=== PATIENT | male | born 1960 | race Caucasian/White ===

== ENCOUNTER → 2023-05-14 | Day surgery (SDC) | payer BC ==
[~2023-05-14] MED LIST: Glucagon,Human Recombinant 1 MG Vial IV ONE; Ketamine 500 mg/10 ML MDV IV ONE; Midazolam 1 MG/ML 2 ML SDV IV ONE; Propofol 200 MG/20 ML SDV IV ONE; Sodium Chloride 0.9% 10 ML Syringe FLUSH PRN
[2023-05-14] MEDS: Lactated Ringers 1,000 ML IV SCH (07:02)
[2023-05-14] MEDS: Simethicone Drops 40 MG/0.6 ML 30 ML Bottle ONE (07:32)
== END | disposition home or self-care (01) ==
LOC: FB.SDS 06:19
PROVIDERS: ATTEND Surgery
DX: Z12.11 Encounter for screening for malignant neoplasm of colon (principal); D12.2 Benign neoplasm of ascending colon; D12.6 Benign neoplasm of colon, unspecified; K63.5 Polyp of colon; K58.9 Irritable bowel syndrome, unspecified; K57.30 Diverticulosis of large intestine without perforation or abscess without bleeding; E78.00 Pure hypercholesterolemia, unspecified; F41.9 Anxiety disorder, unspecified; E66.9 Obesity, unspecified; Z79.899 Other long term (current) drug therapy; Z91.038 Other insect allergy status; Z77.22 Contact with and (suspected) exposure to environmental tobacco smoke (acute) (chronic); Z68.30 Body mass index [BMI] 30.0-30.9, adult
CPT/HCPCS: 00812; 88305; 88341; 88342; A9270-GY; J1610; J2250; J2704; J3490; J7120